=== PATIENT | male | born 1985 | race Caucasian/White ===

== ENCOUNTER 2020-01-17 16:43 | Emergency (ER) | payer MEDICAID, OTHER ==
[~2020-01-17] VITALS: Ht 193 cm; Wt 102.0 kg
--- NOTE | 2020-01-17 16:59 | NUR ---
BIB [facility] WITH ETOH AND SEROQUEL INGESTION. PT DENIES SI/HI. CALM FOR A FEW MOMENTS, THEN UP AND PACING ROOM. NOT VIOLENT AT THIS TIME. SITTER OUTSIDE OF ROOM FOR DIRECT OBSERVATION AND Q15 MIN SAFETY CHECKS. TWO BAGS COLLECTED AND LABELLED IN LOCKERS.
[2020-01-17 17:52] LABS: BASOPHILS # (AUTO) 0.03 x10^3/uL (0-0.1); BASOPHILS % (AUTO) 0 % (0-1); EOSINOPHILS % (AUTO) 0 % (1-7); LYMPHOCYTES # (AUTO) 1.49 x10^3/uL (1-3.4); LYMPHOCYTES % (AUTO) 19 % (22-44); MD NO; MEAN CORPUSCULAR HEMOGLOBIN 30.2 pg (27.5-34.5); MEAN CORPUSCULAR HGB CONC 33.2 g/dL (33.2-36.2); MEAN PLATELET VOLUME 8.3 fL (7.4-10.4); MONOCYTES # (AUTO) 0.79 x10^3/uL (0.2-0.8); MONOCYTES % (AUTO) 10 % (2-9); NEUTROPHILS # (AUTO) 5.58 x10^3/uL (1.8-6.8); NEUTROPHILS % (AUTO) 71 % (42-75); PLATELET COUNT 237 x10^3/uL (130-400); RED BLOOD COUNT 5.62 x10^6/uL (4.38-5.82); RED CELL DISTRIBUTION WIDTH 12.7 % (9.4-14.8)
[2020-01-17 18:05] LABS: ALANINE AMINOTRANSFERASE 95 U/L (12-78); ALBUMIN 4.1 g/dL (3.4-5.0); ANION GAP 15 mmol/L (5-15); CALCIUM 8.5 mg/dL (8.5-10.1); CHLORIDE 98 mmol/L (98-107); CREATININE 1.11 mg/dL (0.7-1.3)
[2020-01-17] MEDS ORDERED: ZIPRASIDONE 20 MG INJ IM ONE ×2 (18:05→18:30)
[2020-01-17 18:06] LABS: SALICYLATE LEVEL < 1.7 mg/dL (2.8-20.0)
[2020-01-17 18:16] LABS: ALKALINE PHOSPHATASE 63 U/L (45-117); TOTAL PROTEIN 7.9 g/dL (6.4-8.2)
--- NOTE | 2020-01-17 18:18 | NUR ---
PT PACING AROUND ED DEPARTMENT AFTER BEING TAKEN TO BATHROOM FOR UA. PT WALKED BACK TO ROOM WITH LIQUEFACTION AND REGASIFICATION HELPER AND SECURITY. PT RE-DIRECTED BY RN, AGREES WITH PLAN FOR MEDICATION AND TO REMAIN IN BED. SITTER OUTSIDE OF ROOM FOR DIRECT OBSERVATION AND Q15 MIN SAFETY CHECKS.
--- NOTE | 2020-01-17 18:57 | NUR ---
REPORT TO MAEGAN MUÑIZ. PT AWARE OF NEED FOR UA.
--- NOTE | 2020-01-17 20:00 | NUR ---
PT REQUESTING WATER AT THIS TIME. ASKED PT TO PROVIDE RN WITH URINE SAMPLE, PT STATES HE STILL CANNOT PROVIDE ONE AT THIS TIME. PT GIVEN WATER. WILL CONTINUIE TO MONITOR.
--- NOTE | 2020-01-17 20:33 | NUR ---
PT PACING ROOM AND REQUESTING WATER. PT PROVIDED WATER AND REMINDED ABOUT THE NEED FOR A URINE SAMPLE. PT STATES HE WILL ATTEMPT TO PROVIDE ONE AGAIN. SITTER IN DIRECT LINE OF SIGHT FOR Q15 MINUTE HELENAL
[2020-01-17 21:45] VITALS: BP 118/76
[2020-01-17 21:56] LABS: AMPHETAMINE SCREEN, URINE Negative (Negative); BARBITURATE SCREEN, URINE Negative (Negative); BENZODIAZEPINE SCREEN, URINE Negative (Negative); CANNABINOID SCREEN, URINE Negative (Negative); COCAINE SCREEN, URINE Negative (Negative); METHADONE SCREEN, URINE Negative (Negative); OPIATE SCREEN, URINE Negative (Negative)
[2020-01-17] MEDS ORDERED: ONDANSETRON ODT 4 MG ONE (23:06)
--- NOTE | 2020-01-17 23:17 | NUR ---
PT AMBULATORY, DENIES SI/HI. PT BELONGINGS RETURNED. AMBULATED TO DC DESK WITH STEADY GAIT.
[2020-01-17] MEDS ORDERED: ONDANSETRON ODT 4 MG PO ONE (23:30)
== END 2020-01-17 23:20 | disposition home or self-care (01) ==
LOC: ED 22:59
DX: F10.129 Alcohol abuse with intoxication, unspecified (principal); R94.31 Abnormal electrocardiogram [ECG] [EKG]; R41.82 Altered mental status, unspecified; Y90.9 Presence of alcohol in blood, level not specified
CPT/HCPCS: 36415; 80053; 80307; 85025; 93005; 96372; 99284; J3486; Q0162

== ENCOUNTER 2020-01-21 16:56 | Inpatient (IN) | payer MEDICAID ==
[~2020-01-21] VITALS: Ht 172.7 cm; Wt 93.5 kg
--- NOTE | 2020-01-21 17:17 | NUR ---
AMAYA STEEL FROM [facility]. PT STATES HE DRANK 1/2 PINT [place]OD[place] BUT HAD 3 BOTTLES SURROUNDING HIM. PT WAS TOLD BY [employer] TO EITHER GO TO LONGTER[place] OR GO TO THE HOSPITAL. PT STATES "HONESLY I JUST DON'T WANT TO GO TO LONGTERM". DENIES ANY MEDICAL COMPLAINTS. HAD BM ON HIMSELF. AOX4. AMBULATORY. RESTING ON GURNEY. NADN.
--- NOTE | 2020-01-21 17:22 | NUR ---
PT PROVIDED W/ WASHCLOTHS, SOAP, BASIN W/ WARM WATER, DISPOSABLE UNDERWEAR, AND GOWN TO CLEAN SELF UP.
--- NOTE | 2020-01-21 17:58 | NUR ---
PT PROVIDED W/ WATER AND WARM BLANKETS. NADN. ROMAN.
[2020-01-21 18:03] LABS: MEAN CORPUSCULAR HEMOGLOBIN 30.7 pg (27.5-34.5); MEAN CORPUSCULAR HGB CONC 33.9 g/dL (33.2-36.2); MEAN CORPUSCULAR VOLUME 90.6 fL (81-97); MEAN PLATELET VOLUME 9.2 fL (7.4-10.4); PLATELET COUNT 171 x10^3/uL (130-400); RED CELL DISTRIBUTION WIDTH 12.4 % (9.4-14.8)
[2020-01-21 18:04] LABS: MD YES
[2020-01-21 18:06] LABS: ALANINE AMINOTRANSFERASE 255 U/L (12-78); ALBUMIN 3.8 g/dL (3.4-5.0); ANION GAP 21 mmol/L (5-15); CALCIUM 8.4 mg/dL (8.5-10.1); CHLORIDE 82 mmol/L (98-107)
[2020-01-21 18:09] LABS: ALKALINE PHOSPHATASE 73 U/L (45-117); BILIRUBIN,TOTAL 2.4 mg/dL (0.2-1.0); CREATININE 1.33 mg/dL (0.7-1.3); TOTAL PROTEIN 7.4 g/dL (6.4-8.2)
[2020-01-21] MEDS ORDERED: LORazepam 1MG TABLET ONE (18:15)
[2020-01-21 18:25] LABS: <RBC MORPHOLOGY> NORMAL; BAND#(MANUAL) 1.31 x10^3/uL; BANDS%(MANUAL) 6 % (0-7); LYMPH#(MANUAL) 0.65 x10^3/uL (1-3.4); LYMPHS% (MANUAL) 3 % (22-44); MONOS#(MANUAL) 0.87 x10^3/uL (0.3-2.7); MONOS% (MANUAL) 4 % (2-9); SEG#(MANUAL) 18.97 x10^3/uL (1.8-6.8); SEGS% (MANUAL) 87 % (42-75)
[2020-01-21 18:26] LABS: <PLATELET ESTIMATE> ADEQUATE; <PLT MORPHOLOGY> NORMAL PLT MORPH
[2020-01-21] MEDS ORDERED: SODIUM CHLORIDE 0.9%, 500ML IVBOLUS ONE (18:30)
[2020-01-21] MEDS ORDERED: LORazepam 2 MG/ML, 1ML IVPush PRN (18:30)
[2020-01-21] MEDS ORDERED: LORazepam 1MG TABLET PO ONE (18:30)
[2020-01-21] MEDS ORDERED: SODIUM CHLORIDE 0.9% 1,000ML IVBOLUS ONE (19:00)
--- NOTE | 2020-01-21 19:03 | NUR ---
REPORT GIVEN TO MAEGAN RASCON.
[2020-01-21] MEDS ORDERED: LORazepam 2 MG/ML, 1ML ONE (19:48)
--- NOTE | 2020-01-21 19:57 | NUR ---
REPORT RECEIVED FROM LYNDA ISSA. PT CLEANED, HAD ANOTHER LOOSE BM. PT PLACED IN NEW GOWN, SHEETS CHANGED. NEW IV STARTED. PT MEDICATED WITH ATIVAN PER ORDERS. CONT TO MONITOR.
--- NOTE | 2020-01-21 20:17 | NUR ---
SPOKE WITH NELIDA ISSA, PER RN, PT TO BE ASSESSED BY HOPITALIST PRIOR TO MOVING TO ROOM. WILL LET ER CHARGE/SUP KNOW.
--- NOTE | 2020-01-21 20:26 | NUR ---
HOSPITALIST CALLED, LEFT MESSAGE CONCERNING PT ADMIT LEVEL OF CARE PER FLOOR RN.
--- NOTE | 2020-01-21 20:57 | NUR ---
ADMITTING AT BEDSIDE FOR ASSESSMENT.
--- NOTE | 2020-01-21 21:17 | NUR ---
PT WITH LOOSE STOOLS AGAIN, PT CLEANED AND LOLI CARE DONE. PT PLACED IN BRIEF. PT REMAINS ON MONITORS, VSS. PT ADMIT LEVEL OF CARE CHANGED TO MED TELE. CONT TO MONITOR.
--- NOTE | 2020-01-21 21:38 | NUR ---
REPORT GIVEN TO FLOOR RN. PT OK TO TRANSFER TO FLOOR.
[2020-01-21] MEDS ORDERED: LABETALOL 5MG/ML, 20ML IVPush PRN (22:00)
[2020-01-21] MEDS ORDERED: ONDANSETRON 2MG/ML, 2ML IVPush PRN (22:00)
[2020-01-21 22:06] VITALS: BP 112/75
[2020-01-21] MEDS: LORazepam 1MG TABLET PO PRN (22:18)
[2020-01-21] MEDS: HEPARIN 5,000 UNITS/ML, 1ML SQ SCH (22:19)
[2020-01-21] MEDS: POTASSIUM CHLORIDE 20 MEQ, MAGNESIUM SULFATE 2 GM, THIAMINE 200 MG, MVI ADULT 10 ML, FO... IV SCH (22:19)
[2020-01-21 22:42] LABS: INTERNATIONAL NORMALIZED RATIO 1.01 (0.93-1.1); PROTHROMBIN TIME 10.7 Seconds (9.6-11.5)
[2020-01-21 23:22] LABS: ANION GAP 17 mmol/L (5-15); CALCIUM 7.6 mg/dL (8.5-10.1); CHLORIDE 87 mmol/L (98-107); CREATININE 1.01 mg/dL (0.7-1.3); TRIGLYCERIDES 93 mg/dL (50-200)
[2020-01-21 23:41] LABS: AMPHETAMINE SCREEN, URINE Negative (Negative); BARBITURATE SCREEN, URINE Negative (Negative); BENZODIAZEPINE SCREEN, URINE Negative (Negative); CANNABINOID SCREEN, URINE Negative (Negative); COCAINE SCREEN, URINE Negative (Negative); METHADONE SCREEN, URINE Negative (Negative); OPIATE SCREEN, URINE Negative (Negative)
[2020-01-21 23:52] LABS: CLOSTRIDIUM DIFFICILE ANTIGEN POSITIVE; CLOSTRIDIUM DIFFICILE TOXIN POSITIVE (Negative)
[2020-01-22] MEDS: VANCOMYCIN 50 MG/ML ORAL SUSP PO SCH ×4 (01:52→20:12)
[2020-01-22] MEDS: LORazepam 1MG TABLET PO PRN ×4 (01:52→20:11)
[2020-01-22 01:56] VITALS: BP 112/77
[2020-01-22] MEDS: CHLORDIAZEPOXIDE 25 MG CAPSULE PO PRN ×3 (05:16→22:34)
[2020-01-22] MEDS: HEPARIN 5,000 UNITS/ML, 1ML SQ SCH ×3 (05:16→22:35)
[2020-01-22 06:20] LABS: BASOPHILS % (AUTO) 0 % (0-1); EOSINOPHILS # (AUTO) 0.01 x10^3/uL (0-0.4); EOSINOPHILS % (AUTO) 0 % (1-7); LYMPHOCYTES # (AUTO) 0.69 x10^3/uL (1-3.4); LYMPHOCYTES % (AUTO) 5 % (22-44); MD NO; MEAN CORPUSCULAR HEMOGLOBIN 30.8 pg (27.5-34.5); MEAN CORPUSCULAR HGB CONC 34.1 g/dL (33.2-36.2); MEAN CORPUSCULAR VOLUME 90.3 fL (81-97); MEAN PLATELET VOLUME 9.6 fL (7.4-10.4); MONOCYTES # (AUTO) 0.87 x10^3/uL (0.2-0.8); MONOCYTES % (AUTO) 7 % (2-9); NEUTROPHILS # (AUTO) 11.83 x10^3/uL (1.8-6.8); NEUTROPHILS % (AUTO) 88 % (42-75); PLATELET COUNT 117 x10^3/uL (130-400); RED BLOOD COUNT 4.32 x10^6/uL (4.38-5.82); RED CELL DISTRIBUTION WIDTH 12.6 % (9.4-14.8)
[2020-01-22 06:25] LABS: ALANINE AMINOTRANSFERASE 178 U/L (12-78); ALBUMIN 2.7 g/dL (3.4-5.0); ANION GAP 13 mmol/L (5-15); CALCIUM 7.5 mg/dL (8.5-10.1); CHLORIDE 89 mmol/L (98-107); CREATININE 0.83 mg/dL (0.7-1.3)
[2020-01-22 06:28] LABS: ALKALINE PHOSPHATASE 55 U/L (45-117); BILIRUBIN,TOTAL 1.9 mg/dL (0.2-1.0); TOTAL PROTEIN 6.2 g/dL (6.4-8.2)
[2020-01-22 09:06] VITALS: BP 134/71
[2020-01-22 15:22] VITALS: BP 104/61
[2020-01-22 19:28] VITALS: BP 120/61
[2020-01-22] MEDS: POTASSIUM CHLORIDE 20 MEQ, MAGNESIUM SULFATE 2 GM, THIAMINE 200 MG, MVI ADULT 10 ML, FO... IV SCH (22:34)
[2020-01-23 01:25] VITALS: BP 133/76
[2020-01-23] MEDS: VANCOMYCIN 50 MG/ML ORAL SUSP PO SCH ×4 (01:29→20:16)
[2020-01-23] MEDS: LORazepam 1MG TABLET PO PRN ×4 (01:29→21:58)
[2020-01-23] MEDS: HEPARIN 5,000 UNITS/ML, 1ML SQ SCH ×3 (05:21→21:58)
[2020-01-23 07:47] VITALS: BP 120/65
[2020-01-23] MEDS: POTASSIUM CHLORIDE 20 MEQ, MAGNESIUM SULFATE 2 GM, THIAMINE 200 MG, MVI ADULT 10 ML, FO... IV SCH (09:36)
[2020-01-23 11:30] LABS: MEAN CORPUSCULAR HEMOGLOBIN 30.3 pg (27.5-34.5); MEAN CORPUSCULAR HGB CONC 33.5 g/dL (33.2-36.2); MEAN CORPUSCULAR VOLUME 90.5 fL (81-97); MEAN PLATELET VOLUME 8.4 fL (7.4-10.4); PLATELET COUNT 106 x10^3/uL (130-400); RED BLOOD COUNT 4.11 x10^6/uL (4.38-5.82)
[2020-01-23 11:31] LABS: HCT (SEDRATE) 37.8 % (39.2-51.8)
[2020-01-23 11:39] LABS: ALANINE AMINOTRANSFERASE 118 U/L (12-78); ALBUMIN 2.5 g/dL (3.4-5.0); ANION GAP 8 mmol/L (5-15); CHLORIDE 93 mmol/L (98-107); CREATININE 0.65 mg/dL (0.7-1.3)
[2020-01-23 11:46] LABS: ALKALINE PHOSPHATASE 63 U/L (45-117)
[2020-01-23] MEDS ORDERED: POTASSIUM CHLORIDE 40 MEQ in SODIUM CHLORIDE 0.9% 500 ML IV ONE (12:00)
[2020-01-23 12:14] LABS: MD YES
[2020-01-23] MEDS: CHLORDIAZEPOXIDE 25 MG CAPSULE PO PRN ×2 (12:15→20:16)
[2020-01-23 12:18] LABS: BANDS%(MANUAL) 8 % (0-7); LYMPH#(MANUAL) 0.56 x10^3/uL (1-3.4); LYMPHS% (MANUAL) 5 % (22-44); MONOS#(MANUAL) 0.67 x10^3/uL (0.3-2.7); MONOS% (MANUAL) 6 % (2-9); SEG#(MANUAL) 9.07 x10^3/uL (1.8-6.8); SEGS% (MANUAL) 81 % (42-75)
[2020-01-23 12:19] LABS: <PLATELET ESTIMATE> DECREASED; <RBC MORPHOLOGY> NORMAL; LARGE PLATELETS 1+
[2020-01-23 12:20] LABS: C-REACTIVE PROTEIN, QUANT > 19.00 mg/dL (0.02-0.49)
[2020-01-23 12:34] LABS: CREATINE KINASE, TOTAL 1223 U/L (39-308)
[2020-01-23 15:09] VITALS: BP 138/78
[2020-01-23] MEDS: ACETAMINOPHEN 650 MG SUPP PR PRN ×2 (15:35→21:58)
[2020-01-23] MEDS: PIPERACILLIN/TAZO/PMX 3.375GM 50 ML IV SCH ×2 (18:09→23:45)
[2020-01-23] MEDS: chlorPROMAZINE 25 MG/ML, 1ML IM PRN (18:09)
[2020-01-23 21:13] VITALS: BP 135/81
[2020-01-24] MEDS: VANCOMYCIN 50 MG/ML ORAL SUSP PO SCH ×4 (02:03→23:58)
[2020-01-24] MEDS: morphine SULFATE 10 MG/ML, 1ML IVPush PRN ×4 (02:22→22:18)
[2020-01-24] MEDS: chlorPROMAZINE 25 MG/ML, 1ML IM PRN (02:23)
[2020-01-24 02:26] VITALS: BP 111/65
[2020-01-24 05:37] LABS: MEAN CORPUSCULAR HEMOGLOBIN 30.5 pg (27.5-34.5); MEAN CORPUSCULAR HGB CONC 33.1 g/dL (33.2-36.2); MEAN CORPUSCULAR VOLUME 92.3 fL (81-97); MEAN PLATELET VOLUME 8.5 fL (7.4-10.4); PLATELET COUNT 124 x10^3/uL (130-400); RED BLOOD COUNT 4.04 x10^6/uL (4.38-5.82)
[2020-01-24 05:38] LABS: CHLORIDE 99 mmol/L (98-107)
[2020-01-24 05:50] LABS: ANION GAP 8 mmol/L (5-15); CALCIUM 8.1 mg/dL (8.5-10.1); CREATININE 0.69 mg/dL (0.7-1.3)
[2020-01-24] MEDS: HEPARIN 5,000 UNITS/ML, 1ML SQ SCH ×3 (05:52→21:46)
[2020-01-24] MEDS: PIPERACILLIN/TAZO/PMX 3.375GM 50 ML IV SCH ×4 (05:52→23:58)
[2020-01-24 06:08] LABS: BASOPHILS # (AUTO) 0.02 x10^3/uL (0-0.1); BASOPHILS % (AUTO) 0 % (0-1); EOSINOPHILS # (AUTO) 0.16 x10^3/uL (0-0.4); EOSINOPHILS % (AUTO) 1 % (1-7); LYMPHOCYTES # (AUTO) 0.89 x10^3/uL (1-3.4); LYMPHOCYTES % (AUTO) 7 % (22-44); MD SCAN; MONOCYTES # (AUTO) 1.82 x10^3/uL (0.2-0.8); MONOCYTES % (AUTO) 15 % (2-9); NEUTROPHILS % (AUTO) 77 % (42-75)
[2020-01-24 06:30] LABS: C-REACTIVE PROTEIN, QUANT > 19.00 mg/dL (0.02-0.49)
[2020-01-24 06:58] VITALS: BP 115/55
[2020-01-24] MEDS ORDERED: GADOTERATE 7.5 MMOL/15 ML SYR ONE (12:27)
[2020-01-24] MEDS: POTASSIUM CHLORIDE 20 MEQ, MAGNESIUM SULFATE 1 GM, THIAMINE 200 MG, FOLIC ACID 1 MG, MV... IV SCH (13:46)
[2020-01-24 14:00] VITALS: BP 127/78
[2020-01-24] MEDS ORDERED: MIDAZOLAM 1 MG/ML, 2ML ONE (15:05)
[2020-01-24] MEDS ORDERED: FENTANYL PF 100 MCG/2ML ONE ×2 (15:05→15:42)
[2020-01-24] MEDS ORDERED: CEFAZOLIN 1,000 MG ONE (15:46)
[2020-01-24] MEDS ORDERED: ONDANSETRON 2MG/ML, 2ML ONE (15:46)
[2020-01-24] MEDS ORDERED: DEXAMETHASONE 4 MG/ML, 1ML ONE (15:46)
[2020-01-24] MEDS ORDERED: SUCCINYLCHOLINE 20 MG/ML, 10ML ONE (15:46)
[2020-01-24] MEDS ORDERED: PROPOFOL 10 MG/ML, 20ML ONE (15:46)
[2020-01-24] MEDS ORDERED: OXYcodone 5 MG/5 ML ORAL.SOL UDC PO PRN (16:00)
[2020-01-24] MEDS ORDERED: LORazepam 2 MG/ML, 1ML IVPush PRN (16:00)
[2020-01-24] MEDS ORDERED: HALOPERIDOL 5 MG/ML IV PRN (16:00)
[2020-01-24] MEDS ORDERED: PROMETHAZINE 25 MG/ML, 1ML IVPush PRN (16:00)
[2020-01-24] MEDS ORDERED: MEPERIDINE/PF 25MG/0.5ML IVPush PRN (16:00)
[2020-01-24] MEDS ORDERED: ALBUTEROL SULFATE 2.5 MG/3 ML NPPB PRN (16:00)
[2020-01-24] MEDS ORDERED: LABETALOL 5MG/ML, 20ML IV PRN (16:00)
[2020-01-24] MEDS ORDERED: hydrALAzine 20 MG/ML, 1ML IV PRN (16:00)
[2020-01-24] MEDS ORDERED: ACETAMINOPHEN 325 MG TABLET PO PRN (16:00)
[2020-01-24] MEDS ORDERED: HYDROmorphone 1 MG/ML, 1ML INJ IVPush PRN (16:00)
[2020-01-24] MEDS ORDERED: FENTANYL PF 100 MCG/2ML IV PRN (16:00)
[2020-01-24 19:21] LABS: MICROSCOPIC INDICATED
[2020-01-24 20:12] VITALS: BP 122/64
[2020-01-25] MEDS: morphine SULFATE 10 MG/ML, 1ML IVPush PRN ×6 (01:02→23:35)
[2020-01-25 01:07] VITALS: BP 128/73
[2020-01-25] MEDS: chlorPROMAZINE 25 MG/ML, 1ML IM PRN (01:47)
[2020-01-25] MEDS: PIPERACILLIN/TAZO/PMX 3.375GM 50 ML IV SCH (05:58)
[2020-01-25] MEDS: VANCOMYCIN 50 MG/ML ORAL SUSP PO SCH ×3 (05:58→18:28)
[2020-01-25] MEDS: HEPARIN 5,000 UNITS/ML, 1ML SQ SCH ×3 (05:59→23:35)
[2020-01-25 06:16] LABS: MEAN CORPUSCULAR HEMOGLOBIN 30.6 pg (27.5-34.5); MEAN CORPUSCULAR HGB CONC 33.1 g/dL (33.2-36.2); MEAN CORPUSCULAR VOLUME 92.4 fL (81-97); MEAN PLATELET VOLUME 7.9 fL (7.4-10.4); PLATELET COUNT 164 x10^3/uL (130-400); RED CELL DISTRIBUTION WIDTH 12.8 % (9.4-14.8)
[2020-01-25 06:18] LABS: CHLORIDE 101 mmol/L (98-107)
[2020-01-25 06:28] LABS: ALANINE AMINOTRANSFERASE 75 U/L (12-78); ALBUMIN 2.1 g/dL (3.4-5.0); ALKALINE PHOSPHATASE 74 U/L (45-117); ANION GAP 9 mmol/L (5-15); BILIRUBIN,TOTAL 0.6 mg/dL (0.2-1.0); CALCIUM 8.2 mg/dL (8.5-10.1); CREATINE KINASE, TOTAL 736 U/L (39-308); CREATININE 0.54 mg/dL (0.7-1.3)
[2020-01-25 06:34] LABS: C-REACTIVE PROTEIN, QUANT > 19.00 mg/dL (0.02-0.49)
[2020-01-25 06:39] LABS: MD YES
[2020-01-25 06:44] LABS: <PLATELET ESTIMATE> ADEQUATE; <PLT MORPHOLOGY> NORMAL PLT MORPH; <RBC MORPHOLOGY> NORMAL; BAND#(MANUAL) 0.13 x10^3/uL; BANDS%(MANUAL) 1 % (0-7); LYMPH#(MANUAL) 1.06 x10^3/uL (1-3.4); LYMPHS% (MANUAL) 8 % (22-44); MONOS#(MANUAL) 1.19 x10^3/uL (0.3-2.7); MONOS% (MANUAL) 9 % (2-9); SEG#(MANUAL) 10.82 x10^3/uL (1.8-6.8); SEGS% (MANUAL) 82 % (42-75)
[2020-01-25 07:40] VITALS: BP 119/76
[2020-01-25] MEDS: CEFAZOLIN PMX 2GM/50ML 50 ML IVPB SCH ×2 (08:05→16:35)
[2020-01-25] MEDS: POTASSIUM CHLORIDE 20 MEQ, MAGNESIUM SULFATE 1 GM, THIAMINE 200 MG, FOLIC ACID 1 MG, MV... IV SCH (12:16)
[2020-01-25 14:59] VITALS: BP 107/62
[2020-01-25 20:17] VITALS: BP 118/63
[2020-01-26] MEDS: CEFAZOLIN PMX 2GM/50ML 50 ML IVPB SCH ×3 (00:54→16:32)
[2020-01-26] MEDS: VANCOMYCIN 50 MG/ML ORAL SUSP PO SCH ×4 (00:55→18:31)
[2020-01-26 01:01] VITALS: BP 132/81
[2020-01-26 04:52] LABS: MEAN CORPUSCULAR HGB CONC 32.1 g/dL (33.2-36.2); MEAN CORPUSCULAR VOLUME 93.6 fL (81-97); MEAN PLATELET VOLUME 7.9 fL (7.4-10.4); PLATELET COUNT 234 x10^3/uL (130-400); RED BLOOD COUNT 3.46 x10^6/uL (4.38-5.82); RED CELL DISTRIBUTION WIDTH 13.5 % (9.4-14.8)
[2020-01-26 04:54] LABS: ANION GAP 7 mmol/L (5-15); CALCIUM 8.2 mg/dL (8.5-10.1); CHLORIDE 104 mmol/L (98-107)
[2020-01-26 04:55] LABS: CREATININE 0.71 mg/dL (0.7-1.3)
[2020-01-26] MEDS: morphine SULFATE 10 MG/ML, 1ML IVPush PRN ×6 (05:23→23:53)
[2020-01-26 05:47] LABS: BASOPHILS # (AUTO) 0.04 x10^3/uL (0-0.1); BASOPHILS % (AUTO) 0 % (0-1); EOSINOPHILS # (AUTO) 0.32 x10^3/uL (0-0.4); EOSINOPHILS % (AUTO) 3 % (1-7); LYMPHOCYTES # (AUTO) 1.86 x10^3/uL (1-3.4); LYMPHOCYTES % (AUTO) 17 % (22-44); MD SCAN; MONOCYTES # (AUTO) 1.66 x10^3/uL (0.2-0.8); MONOCYTES % (AUTO) 16 % (2-9); NEUTROPHILS % (AUTO) 64 % (42-75)
[2020-01-26 06:35] VITALS: BP 115/63
[2020-01-26] MEDS: HEPARIN 5,000 UNITS/ML, 1ML SQ SCH ×2 (08:08→16:31)
[2020-01-26] MEDS: POTASSIUM CHLORIDE 20 MEQ, MAGNESIUM SULFATE 1 GM, THIAMINE 200 MG, FOLIC ACID 1 MG, MV... IV SCH (12:23)
[2020-01-26 12:25] VITALS: BP 125/82
[2020-01-26 18:32] VITALS: BP 114/71
[2020-01-26] MEDS: chlorPROMAZINE 25 MG/ML, 1ML IM PRN (22:08)
[2020-01-27] MEDS: HEPARIN 5,000 UNITS/ML, 1ML SQ SCH ×3 (00:02→16:00)
[2020-01-27] MEDS: VANCOMYCIN 50 MG/ML ORAL SUSP PO SCH ×4 (00:02→18:09)
[2020-01-27] MEDS: CEFAZOLIN PMX 2GM/50ML 50 ML IVPB SCH ×3 (00:03→16:22)
[2020-01-27 00:47] VITALS: BP 116/70
[2020-01-27] MEDS: morphine SULFATE 10 MG/ML, 1ML IVPush PRN ×4 (05:32→21:22)
[2020-01-27 06:27] LABS: ANION GAP 6 mmol/L (5-15); CALCIUM 8.7 mg/dL (8.5-10.1); CHLORIDE 107 mmol/L (98-107)
[2020-01-27 06:28] LABS: MEAN CORPUSCULAR HGB CONC 33.3 g/dL (33.2-36.2); MEAN PLATELET VOLUME 7.8 fL (7.4-10.4); PLATELET COUNT 346 x10^3/uL (130-400); RED BLOOD COUNT 3.66 x10^6/uL (4.38-5.82); RED CELL DISTRIBUTION WIDTH 13.6 % (9.4-14.8)
[2020-01-27 06:34] LABS: CREATININE 0.64 mg/dL (0.7-1.3)
[2020-01-27 06:40] VITALS: BP 117/79
[2020-01-27 06:53] LABS: BASOPHILS # (AUTO) 0.06 x10^3/uL (0-0.1); BASOPHILS % (AUTO) 1 % (0-1); EOSINOPHILS # (AUTO) 0.27 x10^3/uL (0-0.4); EOSINOPHILS % (AUTO) 3 % (1-7); LYMPHOCYTES # (AUTO) 2.38 x10^3/uL (1-3.4); LYMPHOCYTES % (AUTO) 29 % (22-44); MD SCAN; MONOCYTES # (AUTO) 1.48 x10^3/uL (0.2-0.8); MONOCYTES % (AUTO) 18 % (2-9); NEUTROPHILS # (AUTO) 4.04 x10^3/uL (1.8-6.8); NEUTROPHILS % (AUTO) 49 % (42-75)
[2020-01-27] MEDS: POTASSIUM CHLORIDE 20 MEQ, MAGNESIUM SULFATE 1 GM, THIAMINE 200 MG, FOLIC ACID 1 MG, MV... IV SCH (12:12)
[2020-01-27 13:49] VITALS: BP 107/67
[2020-01-27 19:05] VITALS: BP 127/76
[2020-01-28] MEDS: HEPARIN 5,000 UNITS/ML, 1ML SQ SCH ×4 (00:35→23:42)
[2020-01-28] MEDS: VANCOMYCIN 50 MG/ML ORAL SUSP PO SCH ×5 (00:35→23:39)
[2020-01-28] MEDS: CEFAZOLIN PMX 2GM/50ML 50 ML IVPB SCH ×4 (00:35→23:39)
[2020-01-28] MEDS: morphine SULFATE 10 MG/ML, 1ML IVPush PRN ×6 (00:36→22:15)
[2020-01-28 00:48] VITALS: BP 126/70
[2020-01-28 06:43] LABS: BASOPHILS # (AUTO) 0.05 x10^3/uL (0-0.1); BASOPHILS % (AUTO) 0 % (0-1); EOSINOPHILS % (AUTO) 2 % (1-7); LYMPHOCYTES # (AUTO) 2.52 x10^3/uL (1-3.4); LYMPHOCYTES % (AUTO) 22 % (22-44); MD NO; MEAN CORPUSCULAR HEMOGLOBIN 30.2 pg (27.5-34.5); MEAN CORPUSCULAR HGB CONC 32.6 g/dL (33.2-36.2); MEAN CORPUSCULAR VOLUME 92.9 fL (81-97); MEAN PLATELET VOLUME 7.7 fL (7.4-10.4); MONOCYTES # (AUTO) 1.66 x10^3/uL (0.2-0.8); MONOCYTES % (AUTO) 14 % (2-9); NEUTROPHILS # (AUTO) 7.19 x10^3/uL (1.8-6.8); NEUTROPHILS % (AUTO) 62 % (42-75); PLATELET COUNT 427 x10^3/uL (130-400); RED BLOOD COUNT 3.84 x10^6/uL (4.38-5.82); RED CELL DISTRIBUTION WIDTH 13.4 % (9.4-14.8)
[2020-01-28 06:57] VITALS: BP 119/73
[2020-01-28 06:58] LABS: CHLORIDE 104 mmol/L (98-107)
[2020-01-28 07:13] LABS: ALANINE AMINOTRANSFERASE 68 U/L (12-78); ALBUMIN 2.3 g/dL (3.4-5.0); ALKALINE PHOSPHATASE 69 U/L (45-117); ANION GAP 7 mmol/L (5-15); BILIRUBIN,TOTAL 0.3 mg/dL (0.2-1.0); CALCIUM 8.6 mg/dL (8.5-10.1); CREATININE 0.65 mg/dL (0.7-1.3); TOTAL PROTEIN 6.3 g/dL (6.4-8.2)
[2020-01-28] MEDS: POTASSIUM CHLORIDE 20 MEQ, MAGNESIUM SULFATE 1 GM, THIAMINE 200 MG, FOLIC ACID 1 MG, MV... IV SCH (12:42)
[2020-01-28 12:56] VITALS: BP 109/68
[2020-01-28 20:10] VITALS: BP 111/69
[2020-01-29] MEDS: morphine SULFATE 10 MG/ML, 1ML IVPush PRN ×7 (01:34→23:58)
[2020-01-29 01:37] VITALS: BP 122/75
[2020-01-29] MEDS: VANCOMYCIN 50 MG/ML ORAL SUSP PO SCH ×4 (05:51→23:58)
[2020-01-29 06:20] LABS: MEAN CORPUSCULAR HEMOGLOBIN 30.1 pg (27.5-34.5); MEAN CORPUSCULAR HGB CONC 32.3 g/dL (33.2-36.2); MEAN PLATELET VOLUME 7.3 fL (7.4-10.4); PLATELET COUNT 526 x10^3/uL (130-400); RED CELL DISTRIBUTION WIDTH 13.7 % (9.4-14.8)
[2020-01-29 06:24] LABS: ALBUMIN 2.4 g/dL (3.4-5.0); CALCIUM 8.6 mg/dL (8.5-10.1); CHLORIDE 104 mmol/L (98-107)
[2020-01-29 06:34] LABS: ALANINE AMINOTRANSFERASE 72 U/L (12-78); ALKALINE PHOSPHATASE 79 U/L (45-117); ANION GAP 8 mmol/L (5-15); BILIRUBIN,TOTAL 0.2 mg/dL (0.2-1.0); CREATININE 0.71 mg/dL (0.7-1.3); TOTAL PROTEIN 6.6 g/dL (6.4-8.2)
[2020-01-29 06:41] LABS: BASOPHILS # (AUTO) 0.05 x10^3/uL (0-0.1); BASOPHILS % (AUTO) 0 % (0-1); EOSINOPHILS # (AUTO) 0.17 x10^3/uL (0-0.4); EOSINOPHILS % (AUTO) 1 % (1-7); LYMPHOCYTES # (AUTO) 2.73 x10^3/uL (1-3.4); LYMPHOCYTES % (AUTO) 19 % (22-44); MD SCAN; MONOCYTES # (AUTO) 1.28 x10^3/uL (0.2-0.8); MONOCYTES % (AUTO) 9 % (2-9); NEUTROPHILS # (AUTO) 10.38 x10^3/uL (1.8-6.8); NEUTROPHILS % (AUTO) 71 % (42-75)
[2020-01-29 07:55] VITALS: BP 134/75
[2020-01-29] MEDS: HEPARIN 5,000 UNITS/ML, 1ML SQ SCH ×2 (07:57→16:09)
[2020-01-29] MEDS: CEFAZOLIN PMX 2GM/50ML 50 ML IVPB SCH ×3 (07:57→23:58)
[2020-01-29] MEDS: POTASSIUM CHLORIDE 20 MEQ, MAGNESIUM SULFATE 1 GM, THIAMINE 200 MG, FOLIC ACID 1 MG, MV... IV SCH (12:01)
[2020-01-29 16:18] VITALS: BP 109/68
[2020-01-29 19:41] VITALS: BP 103/58
[2020-01-30] MEDS: HEPARIN 5,000 UNITS/ML, 1ML SQ SCH ×4 (00:01→23:27)
[2020-01-30 00:33] VITALS: BP 116/70
[2020-01-30] MEDS: morphine SULFATE 10 MG/ML, 1ML IVPush PRN ×2 (04:39→12:19)
[2020-01-30 04:49] LABS: BASOPHILS # (AUTO) 0.07 x10^3/uL (0-0.1); BASOPHILS % (AUTO) 1 % (0-1); EOSINOPHILS # (AUTO) 0.13 x10^3/uL (0-0.4); EOSINOPHILS % (AUTO) 1 % (1-7); LYMPHOCYTES # (AUTO) 2.57 x10^3/uL (1-3.4); LYMPHOCYTES % (AUTO) 19 % (22-44); MD NO; MEAN CORPUSCULAR HEMOGLOBIN 30.3 pg (27.5-34.5); MEAN CORPUSCULAR HGB CONC 32.8 g/dL (33.2-36.2); MEAN CORPUSCULAR VOLUME 92.5 fL (81-97); MEAN PLATELET VOLUME 7.5 fL (7.4-10.4); MONOCYTES # (AUTO) 1.37 x10^3/uL (0.2-0.8); MONOCYTES % (AUTO) 10 % (2-9); NEUTROPHILS # (AUTO) 9.36 x10^3/uL (1.8-6.8); NEUTROPHILS % (AUTO) 69 % (42-75); PLATELET COUNT 546 x10^3/uL (130-400); RED BLOOD COUNT 3.87 x10^6/uL (4.38-5.82); RED CELL DISTRIBUTION WIDTH 13.8 % (9.4-14.8)
[2020-01-30 05:01] LABS: CALCIUM 8.3 mg/dL (8.5-10.1); CHLORIDE 107 mmol/L (98-107)
[2020-01-30 05:12] LABS: ANION GAP 7 mmol/L (5-15); CREATININE 0.72 mg/dL (0.7-1.3)
[2020-01-30] MEDS: VANCOMYCIN 50 MG/ML ORAL SUSP PO SCH ×4 (05:21→23:48)
[2020-01-30 07:08] VITALS: BP 120/76
[2020-01-30] MEDS: CEFAZOLIN PMX 2GM/50ML 50 ML IVPB SCH ×3 (08:23→23:49)
[2020-01-30] MEDS: POTASSIUM CHLORIDE 20 MEQ, MAGNESIUM SULFATE 1 GM, THIAMINE 200 MG, FOLIC ACID 1 MG, MV... IV SCH (11:30)
[2020-01-30 13:54] VITALS: BP 133/74
[2020-01-30] MEDS: OXYcodone/APAP 5/325MG TABLET PO PRN ×2 (15:52→23:48)
[2020-01-30 19:19] VITALS: BP 121/73
[2020-01-30] MEDS ORDERED: ACETAMINOPHEN 325 MG TABLET ONE (21:22)
[2020-01-30] MEDS: ACETAMINOPHEN 325 MG TABLET PO PRN (21:24)
[2020-01-31 00:41] VITALS: BP 113/67
[2020-01-31 04:39] LABS: MEAN CORPUSCULAR HEMOGLOBIN 30.5 pg (27.5-34.5); MEAN CORPUSCULAR HGB CONC 32.7 g/dL (33.2-36.2); MEAN CORPUSCULAR VOLUME 93.1 fL (81-97); MEAN PLATELET VOLUME 7.7 fL (7.4-10.4); PLATELET COUNT 565 x10^3/uL (130-400); RED BLOOD COUNT 3.99 x10^6/uL (4.38-5.82); RED CELL DISTRIBUTION WIDTH 13.6 % (9.4-14.8)
[2020-01-31 04:46] LABS: ALANINE AMINOTRANSFERASE 72 U/L (12-78); ALBUMIN 2.7 g/dL (3.4-5.0); ANION GAP 6 mmol/L (5-15); CALCIUM 8.9 mg/dL (8.5-10.1); CHLORIDE 104 mmol/L (98-107); CREATININE 0.73 mg/dL (0.7-1.3)
[2020-01-31 04:53] LABS: ALKALINE PHOSPHATASE 87 U/L (45-117); BILIRUBIN,TOTAL 0.2 mg/dL (0.2-1.0); TOTAL PROTEIN 6.7 g/dL (6.4-8.2)
[2020-01-31] MEDS: CEFAZOLIN PMX 2GM/50ML 50 ML IVPB SCH ×3 (05:05→21:11)
[2020-01-31 05:13] LABS: HCT (SEDRATE) 37.1 % (39.2-51.8)
[2020-01-31 05:50] LABS: BASOPHILS # (AUTO) 0.07 x10^3/uL (0-0.1); BASOPHILS % (AUTO) 1 % (0-1); EOSINOPHILS # (AUTO) 0.11 x10^3/uL (0-0.4); EOSINOPHILS % (AUTO) 1 % (1-7); LYMPHOCYTES # (AUTO) 2.32 x10^3/uL (1-3.4); LYMPHOCYTES % (AUTO) 17 % (22-44); MD SCAN; MONOCYTES # (AUTO) 1.22 x10^3/uL (0.2-0.8); MONOCYTES % (AUTO) 9 % (2-9); NEUTROPHILS # (AUTO) 10.01 x10^3/uL (1.8-6.8); NEUTROPHILS % (AUTO) 73 % (42-75)
[2020-01-31] MEDS: VANCOMYCIN 50 MG/ML ORAL SUSP PO SCH ×3 (06:35→18:00)
[2020-01-31] MEDS: OXYcodone/APAP 5/325MG TABLET PO PRN ×2 (07:59→16:02)
[2020-01-31] MEDS: HEPARIN 5,000 UNITS/ML, 1ML SQ SCH ×2 (08:00→16:00)
[2020-01-31 08:38] VITALS: BP 133/69
[2020-01-31] MEDS: POTASSIUM CHLORIDE 20 MEQ, MAGNESIUM SULFATE 1 GM, THIAMINE 200 MG, FOLIC ACID 1 MG, MV... IV SCH (11:30)
[2020-01-31 13:32] VITALS: BP 146/91
[2020-01-31 19:10] VITALS: BP 105/64
[2020-01-31] MEDS: ACETAMINOPHEN 325 MG TABLET PO PRN (21:10)
[2020-02-01] VITALS: BP 111/70
[2020-02-01] MEDS: VANCOMYCIN 50 MG/ML ORAL SUSP PO SCH ×3 (00:10→12:22)
[2020-02-01] MEDS: OXYcodone/APAP 5/325MG TABLET PO PRN ×2 (00:10→08:22)
[2020-02-01] MEDS: CEFAZOLIN PMX 2GM/50ML 50 ML IVPB SCH (05:35)
[2020-02-01 06:16] LABS: MEAN CORPUSCULAR HEMOGLOBIN 30.5 pg (27.5-34.5); MEAN CORPUSCULAR HGB CONC 33.1 g/dL (33.2-36.2); MEAN CORPUSCULAR VOLUME 92.2 fL (81-97); MEAN PLATELET VOLUME 7.7 fL (7.4-10.4); PLATELET COUNT 610 x10^3/uL (130-400); RED BLOOD COUNT 3.87 x10^6/uL (4.38-5.82); RED CELL DISTRIBUTION WIDTH 14.2 % (9.4-14.8)
[2020-02-01 06:25] LABS: ANION GAP 5 mmol/L (5-15); C-REACTIVE PROTEIN, QUANT 0.93 mg/dL (0.02-0.49); CALCIUM 8.5 mg/dL (8.5-10.1); CHLORIDE 105 mmol/L (98-107); CREATININE 0.71 mg/dL (0.7-1.3)
[2020-02-01 06:39] LABS: MD YES
[2020-02-01 06:41] LABS: BAND#(MANUAL) 0.79 x10^3/uL; BANDS%(MANUAL) 6 % (0-7); BASOS#(MANUAL) 0.13 x10^3/uL (0-0.1); BASOS% (MANUAL) 1 % (0-1); EOS#(MANUAL) 0.26 x10^3/uL (0.0-0.4); EOS% (MANUAL) 2 % (1-7); LYMPHS% (MANUAL) 25 % (22-44); METAMYELOCYTES# (MANUAL) 0.53 x10^3/uL (0-0); METAMYELOCYTES% (MANUAL) 4 % (0-1); MONOS#(MANUAL) 0.53 x10^3/uL (0.3-2.7); MONOS% (MANUAL) 4 % (2-9); SEG#(MANUAL) 7.66 x10^3/uL (1.8-6.8); SEGS% (MANUAL) 58 % (42-75)
[2020-02-01 06:42] LABS: <PLATELET ESTIMATE> INCREASED; <PLT MORPHOLOGY> NORMAL PLT MORPH; <RBC MORPHOLOGY> NORMAL
[2020-02-01 06:44] LABS: PMNS WITH VACUOLES 1+; TOXIC GRAN 1+
[2020-02-01] MEDS: HEPARIN 5,000 UNITS/ML, 1ML SQ SCH ×3 (08:00→15:34)
[2020-02-01] MEDS ORDERED: ERTAPENEM 1 GM in SODIUM CHLORIDE 0.9% 50 ML IV SCH (08:00)
[2020-02-01 10:34] VITALS: BP 136/67
[2020-02-01] MEDS: POTASSIUM CHLORIDE 20 MEQ, MAGNESIUM SULFATE 1 GM, THIAMINE 200 MG, FOLIC ACID 1 MG, MV... IV SCH (11:30)
[2020-02-01 12:12] VITALS: BP 117/73
[2020-02-01] MEDS ORDERED: CEFD300C37 PO (14:46)
[2020-02-01] MEDS ORDERED: VANC125C3 PO (14:46)
[2020-02-01] MEDS ORDERED: THIA100T67 PO (14:46)
[2020-02-01] MEDS ORDERED: ERTA1VIA4 IV (14:46)
[2020-02-01] MEDS ORDERED: OXYcodone/APAP 5/325MG PO (14:46)
[2020-02-01] MEDS ORDERED: FOLI-17 PO (14:46)
== END 2020-02-01 16:34 | disposition left against medical advice (07) | DRG 853 ==
LOC: ED 19:26 → EDIP 19:53 → 4WST 21:51
PROVIDERS: ADMIT Family Medicine; ATTEND Hospitalist
PROC: 0MB40ZZ Excision of Left Elbow Bursa and Ligament, Open Approach (ICD-10-PCS; 2020-01-24)
PROC: B5181ZA Fluoroscopy of Superior Vena Cava using Low Osmolar Contrast, Guidance (ICD-10-PCS; principal; 2020-01-31)
PROC: 02HV33Z Insertion of Infusion Device into Superior Vena Cava, Percutaneous Approach (ICD-10-PCS; 2020-01-31)
PROC: B548ZZA Ultrasonography of Superior Vena Cava, Guidance (ICD-10-PCS; 2020-01-31)
DX: A41.9 Sepsis, unspecified organism (principal); M72.6 Necrotizing fasciitis; K85.20 Alcohol induced acute pancreatitis without necrosis or infection; N17.0 Acute kidney failure with tubular necrosis; L02.414 Cutaneous abscess of left upper limb; E87.1 Hypo-osmolality and hyponatremia; A04.72 Enterocolitis due to Clostridium difficile, not specified as recurrent; M62.82 Rhabdomyolysis; M71.122 Other infective bursitis, left elbow; B95.0 Streptococcus, group A, as the cause of diseases classified elsewhere; B95.8 Unspecified staphylococcus as the cause of diseases classified elsewhere; R74.0 Nonspecific elevation of levels of transaminase and lactic acid dehydrogenase [LDH]; Z20.828 Contact with and (suspected) exposure to other viral communicable diseases; E86.0 Dehydration; E86.1 Hypovolemia; F43.10 Post-traumatic stress disorder, unspecified; S50.819A Abrasion of unspecified forearm, initial encounter; S80.211A Abrasion, right knee, initial encounter; S80.212A Abrasion, left knee, initial encounter; Y90.7 Blood alcohol level of 200-239 mg/100 ml; G89.29 Other chronic pain; V03.10XA Pedestrian on foot injured in collision with car, pick-up truck or van in traffic accident, initial encounter; Y92.410 Unspecified street and highway as the place of occurrence of the external cause; Z53.29 Procedure and treatment not carried out because of patient's decision for other reasons
CPT/HCPCS: 36415; 96361; 96374; 99285; J3370; J7042; 36573; 71045; 76700; 80048; 80053; 80074; 80307; 81001; 82140; 82150; 82550; 83615; 83690; 83735; 84443; 84478; 85025; 85610; 85651; 86140; 87040; 87070; 87075; 87077; 87147; 87181; 87186; 87205; 87324; 87635; 93306; G0378; J0690; J1100; J1335; J1644; J2250; J2405; J2543; J2704; J3010; J3230; J3411; J3475; J3480; A9575; C1751; J0330; J2060; J2270; J7030; J7040